=== PATIENT | female | born 1940 | race Caucasian/White ===

== ENCOUNTER 2018-05-17 09:36 | Emergency (ER) | payer MEDICARE ==
[~2018-05-17] VITALS: Ht 162.6 cm; Wt 5.9 kg
[2018-05-17 11:45] LABS: BASOPHILS # (AUTO) 0.1 X10'3 (0-0.2); BASOPHILS % (AUTO) 0.6 % (0-1); EOSINOPHILS % (AUTO) 0 % (0-6); HEMATOCRIT 42.6 % (35.0-45.0); HEMOGLOBIN 14.4 g/dl (12.0-16.0); LYMPHOCYTES # (AUTO) 1.3 X10'3 (1.1-4.8); LYMPHOCYTES % (AUTO) 8.8 % (21-51); MEAN CORPUSCULAR HEMOGLOBIN 30.8 PG (27.0-31.0); MEAN CORPUSCULAR HGB CONC 33.9 g/dL (33.0-36.5); MEAN CORPUSCULAR VOLUME 90.9 FL (78-98); MEAN PLATELET VOLUME 7.6 FL (7.4-10.4); MONOCYTES # (AUTO) 0.6 X10'3 (0-0.9); MONOCYTES % (AUTO) 4.5 % (2-12); NEUTROPHILS # (AUTO) 12.4 X10'3 (1.8-7.7); NEUTROPHILS % (AUTO) 86.1 % (42-75); PLATELET COUNT 267 X10'3 (140-440); RED BLOOD COUNT 4.69 X10'6 (4.20-5.60); RED CELL DISTRIBUTION WIDTH 14.1 % (11.5-14.5); WHITE BLOOD COUNT 14.4 X10'3 (4.5-11.0)
[2018-05-17 12:00] LABS: ALANINE AMINOTRANSFERASE 30 U/L (12-78); ALBUMIN 4.4 G/DL (3.4-5.0); ALBUMIN/GLOBULIN RATIO 1.2 (1.1-1.5); ALKALINE PHOSPHATASE 88 IU/L (46-116); ANION GAP 10 (8-16); ASPARTATE AMINO TRANSFERASE 22 U/L (10-37); BILIRUBIN,TOTAL 0.7 MG/DL (0.1-1.0); BLOOD UREA NITROGEN 17 MG/DL (7-18); BUN/CREATININE RATIO 16.5 (6.6-38.0); CALCIUM 9.8 MG/DL (8.5-10.1); CHLORIDE 104 MMOL/L (99-107); CREATININE 1.03 MG/DL (0.40-0.90); GLUCOSE 117 MG/DL (70-104); POTASSIUM 4.3 MMOL/L (3.5-5.1); SODIUM 141 MMOL/L (135-145); TOTAL CARBON DIOXIDE 26.6 MMOL/L (24-32); eGFR 52 ML/MIN
[2018-05-17 12:03] LABS: PROTHROMBIN TIME 9.9 SECONDS (9.0-12.0)
--- NOTE | 2018-05-17 12:35 | NUR ---
PT IN CT
[2018-05-17] MEDS ORDERED: metroNIDAZOLE 500mg tablet PO ONE (14:25)
[2018-05-17] MEDS ORDERED: ondansetron 4mg rapidly disintigrating tab PO ONE (14:25)
[2018-05-17] MEDS ORDERED: ciprofloxacin 250mg tablet PO ONE (14:25)
[2018-05-17] MEDS ORDERED: ONDA8TAB6 PO (15:15)
[2018-05-17] MEDS ORDERED: CIPR-230 PO (15:15)
[2018-05-17] MEDS ORDERED: METR-159 PO (15:15)
[2018-05-17 15:31] VITALS: BP 173/89
== END 2018-05-17 15:33 | disposition home or self-care (01) ==
LOC: ER 09:37
DX: K52.89 Other specified noninfective gastroenteritis and colitis (principal); K62.5 Hemorrhage of anus and rectum; I10 Essential (primary) hypertension; Z88.0 Allergy status to penicillin
CPT/HCPCS: 36415; 74176; 80053; 85025; 85610; 99284; J3490

== ENCOUNTER 2020-01-17 18:40 | Inpatient (IN) | payer MEDICARE ==
[~2020-01-17] VITALS: Ht 162.6 cm; Wt 58.1 kg
[~2020-01-17 18:40] MED LIST: ONDA8TAB6 PO
[2020-01-17] MEDS ORDERED: acetaminophen 325mg tablet PO STA (19:04)
[2020-01-17] MEDS ORDERED: dexamethasone sod phosphate 10mg/ml inj IV STA (19:04)
[2020-01-17] MEDS ORDERED: albuterol 2.5 MG/3 ML nebule NEB ONE (19:05)
[2020-01-17] MEDS ORDERED: enoxaparin 100mg/ml syringe SUBCUT ONE (19:05)
[2020-01-17] MEDS ORDERED: LISI-600 PO (19:08)
[2020-01-17] MEDS ORDERED: FAMO20TA10 PO (19:08)
[2020-01-17] MEDS ORDERED: REMDESIVIR 100MG inj. 200 MG in normal saline 100ml IV soln 100 ML IV ONE (19:10)
[2020-01-17] MEDS: ringers solution, lacted 1,000 ML IV SCH (19:28)
[2020-01-17 19:34] LABS: BASOPHILS # (AUTO) 0.1 X10'3 (0-0.2); BASOPHILS % (AUTO) 0.5 % (0-1); EOSINOPHILS % (AUTO) 0 % (0-6); HEMATOCRIT 40.4 % (35.0-45.0); HEMOGLOBIN 13.8 g/dl (12.0-16.0); LYMPHOCYTES # (AUTO) 0.6 X10'3 (1.1-4.8); LYMPHOCYTES % (AUTO) 4.7 % (21-51); MEAN CORPUSCULAR HEMOGLOBIN 30.3 PG (27.0-31.0); MEAN CORPUSCULAR HGB CONC 34.1 g/dL (33.0-36.5); MEAN CORPUSCULAR VOLUME 88.9 FL (78-98); MEAN PLATELET VOLUME 6.8 FL (7.4-10.4); MONOCYTES % (AUTO) 7.2 % (2-12); NEUTROPHILS # (AUTO) 11.6 X10'3 (1.8-7.7); NEUTROPHILS % (AUTO) 87.6 % (42-75); PLATELET COUNT 233 X10'3 (140-440); RED BLOOD COUNT 4.54 X10'6 (4.20-5.60); RED CELL DISTRIBUTION WIDTH 14.2 % (11.5-14.5); WHITE BLOOD COUNT 13.3 X10'3 (4.5-11.0)
[2020-01-17] MEDS ORDERED: CefTRIAXone 2gm/D5W 50ml BAG 50 ML IV ONE (19:45)
[2020-01-17] MEDS ORDERED: azithromycin/NS 500mg/250ml 250 ML IV ONE (19:45)
[2020-01-17 19:48] LABS: ALANINE AMINOTRANSFERASE 37 U/L (12-78); ALBUMIN 2.8 G/DL (3.4-5.0); ALBUMIN/GLOBULIN RATIO 0.5 (1.1-1.5); ALKALINE PHOSPHATASE 73 IU/L (46-116); ANION GAP 9 (8-16); ASPARTATE AMINO TRANSFERASE 33 U/L (10-37); BILIRUBIN,TOTAL 0.5 MG/DL (0.1-1.0); BLOOD UREA NITROGEN 18 MG/DL (7-18); BUN/CREATININE RATIO 17.5 (6.6-38.0); CALCIUM 8.7 MG/DL (8.5-10.1); CHLORIDE 100 MMOL/L (99-107); CREATININE 1.03 MG/DL (0.40-0.90); GLUCOSE 129 MG/DL (70-104); POTASSIUM 4.3 MMOL/L (3.5-5.1); SODIUM 134 MMOL/L (135-145); TOTAL CARBON DIOXIDE 24.8 MMOL/L (24-32); TOTAL PROTEIN 7.9 G/DL (6.4-8.2); eGFR 52 ML/MIN
[2020-01-17 19:59] LABS: C-REACTIVE PROTEIN 8.79 MG/DL (0.0-0.5); FERRITIN 730 NG/ML (8-252); LACTATE DEHYDROGENASE 358 U/L (81-234)
[2020-01-17 20:20] LABS: ABG BASE EXCESS -0.3 mmol/L (-2.0-2.0); ABG HCO3 21.4 mmol/L (22.0-26.0); ABG OXYGEN SATURATION 92.4 % (94-97); ABG PCO2 (T) 27.6 mmHg (32.0-45.0); ALLEN'S TEST POSITIVE; FCOHb 0.5 % (0.0-3.9); FLOW 6 L/min; FMetHb 0.3 % (0.0-1.5); FO2Hb 91.7 % (94-97); PATIENT TEMPERATURE 37.3; TOTAL HEMOGLOBIN 13.2 G/dl (12.0-16.0)
[2020-01-17] MEDS ORDERED: ALBUTEROL INHALER 1 PUFF/90 MCG INHALER IH ONE (20:25)
[2020-01-17] MEDS ORDERED: temazepam 15mg capsule PO PRN (21:00)
[2020-01-17] MEDS ORDERED: iohexol 350MG/ML 100ml bottle IV ONE (21:03)
[2020-01-17 21:24] LABS: D-DIMER > 35.20 MG/L FEU (0-0.50)
[2020-01-17] MEDS ORDERED: acetaminophen 650mg rectal suppository RC PRN (23:40)
[2020-01-17] MEDS ORDERED: magnesium Cl slow-release 64mg tablet PO PRN (23:40)
[2020-01-17] MEDS ORDERED: potassium CL 10mEq/100ml bag 100 ML IV PRN ×2 (23:40)
[2020-01-17] MEDS ORDERED: ondansetron/PF 4mg/2ml inj IV PRN (23:40)
[2020-01-17] MEDS ORDERED: acetaminophen 325mg tablet PO PRN ×2 (23:40)
[2020-01-17] MEDS ORDERED: potassium Cl 20 mEq SR tablet PO PRN ×2 (23:40)
[2020-01-17] MEDS ORDERED: ALBUTEROL INHALER 1 PUFF/90 MCG INHALER IH PRN (23:40)
[2020-01-17] MEDS ORDERED: metoclopramide 5 mg/ml inj IV PRN (23:40)
[2020-01-17] MEDS ORDERED: mag hydrox/Alum hydrox/simeth 30ml oral suspension PO PRN (23:40)
[2020-01-17] MEDS ORDERED: HYDROcodone/acetaminophen 10/325mg tab PO PRN (23:40)
[2020-01-17] MEDS ORDERED: magnesium 2GM in 50ml NS 50 ML IV PRN (23:40)
[2020-01-17] MEDS ORDERED: magnesium hydroxide 30ml (MOM) UD suspension PO PRN (23:40)
[2020-01-17] MEDS ORDERED: HYDROcodone/acetaminophen 5mg/325mg tablet PO PRN (23:40)
[2020-01-17] MEDS ORDERED: magnesium 4gm in 100ml NS 100 ML IV PRN (23:40)
[2020-01-18] MEDS: normal saline 1000ml 1,000 ML IV SCH ×2 (00:33→18:00)
[2020-01-18] MEDS: ringers solution, lacted 1,000 ML IV SCH ×4 (01:45→21:45)
[2020-01-18] MEDS ORDERED: CefTRIAXone/D5W-Rocephin 1gm 50 ML IV SCH (08:00)
[2020-01-18] MEDS: K and/or MAG REPLACEMENT MC SCH ×2 (08:00→20:00)
[2020-01-18] MEDS ORDERED: azithromycin 250mg tablet PO SCH (08:00)
[2020-01-18] MEDS: famotidine 20mg tablet PO SCH ×2 (08:42→20:36)
[2020-01-18] MEDS: dexamethasone 4mg tablet PO SCH (08:42)
[2020-01-18] MEDS: lisinopril 20mg tablet PO SCH (08:44)
[2020-01-18] MEDS: enoxaparin 50mg/0.5ml (from 3ml vial) syringe SUBCUT SCH ×2 (08:44→20:36)
[2020-01-18 08:52] LABS: BASOPHILS # (AUTO) 0.1 X10'3 (0-0.2); BASOPHILS % (AUTO) 0.5 % (0-1); EOSINOPHILS % (AUTO) 0 % (0-6); HEMATOCRIT 41.4 % (35.0-45.0); HEMOGLOBIN 14.2 g/dl (12.0-16.0); LYMPHOCYTES # (AUTO) 0.7 X10'3 (1.1-4.8); LYMPHOCYTES % (AUTO) 6.5 % (21-51); MEAN CORPUSCULAR HGB CONC 34.3 g/dL (33.0-36.5); MEAN CORPUSCULAR VOLUME 90.3 FL (78-98); MEAN PLATELET VOLUME 7.4 FL (7.4-10.4); MONOCYTES # (AUTO) 0.7 X10'3 (0-0.9); MONOCYTES % (AUTO) 6.4 % (2-12); NEUTROPHILS % (AUTO) 86.6 % (42-75); PLATELET COUNT 225 X10'3 (140-440); RED BLOOD COUNT 4.59 X10'6 (4.20-5.60); RED CELL DISTRIBUTION WIDTH 14.4 % (11.5-14.5); WHITE BLOOD COUNT 10.4 X10'3 (4.5-11.0)
--- NOTE | 2020-01-18 08:57 | NUR ---
pt medicated with scheduled meds,pt sitting up in bed eating her breakfast ,no distress noted,will cont to monitor.
[2020-01-18 09:06] LABS: PARTIAL THROMBOPLASTIN TIME 40 SECONDS (22-32)
[2020-01-18 09:17] LABS: D-DIMER > 35.20 MG/L FEU (0-0.50)
[2020-01-18 09:24] LABS: ALANINE AMINOTRANSFERASE 27 U/L (12-78); ALBUMIN 2.4 G/DL (3.4-5.0); ALBUMIN/GLOBULIN RATIO 0.5 (1.1-1.5); ALKALINE PHOSPHATASE 68 IU/L (46-116); ANION GAP 10 (8-16); ASPARTATE AMINO TRANSFERASE 30 U/L (10-37); BILIRUBIN,TOTAL 0.3 MG/DL (0.1-1.0); BLOOD UREA NITROGEN 19 MG/DL (7-18); BUN/CREATININE RATIO 22.4 (6.6-38.0); CALCIUM 8.6 MG/DL (8.5-10.1); CHLORIDE 103 MMOL/L (99-107); CREATININE 0.85 MG/DL (0.40-0.90); FERRITIN 744 NG/ML (8-252); GLUCOSE 140 MG/DL (70-104); LACTATE DEHYDROGENASE 350 U/L (81-234); MAGNESIUM 2.4 MG/DL (1.5-2.4); PHOSPHORUS 3.5 MG/DL (2.3-4.5); POTASSIUM 4.1 MMOL/L (3.5-5.1); SODIUM 137 MMOL/L (135-145); TOTAL CARBON DIOXIDE 23.6 MMOL/L (24-32); TOTAL PROTEIN 7.4 G/DL (6.4-8.2); eGFR 65 ML/MIN
--- NOTE | 2020-01-18 10:58 | NUR ---
PT SITTING IN BED ,DENIES ANY CHEIF COMPLAINT .WILL CONT TO MONITOR.
--- NOTE | 2020-01-18 13:09 | NUR ---
called to give report as per the tech ,pt nurse is busy with other pt and they will call us back.
--- NOTE | 2020-01-18 13:49 | NUR ---
calling back to give report have not recevied the call from the nurse.
--- NOTE | 2020-01-18 13:54 | NUR ---
Patient in room ED 12. I have received report from ED nurse, and had the opportunity to ask questions and assume patient care.
--- NOTE | 2020-01-18 14:47 | NUR ---
notified [facility] charge nurse that pt report has been called an hour ago but due to short staff unable to take pt upstairs.
--- NOTE | 2020-01-18 14:49 | NUR ---
emely hernandez is going to take pt ustairs on tele monitor.
[2020-01-18 16:03] VITALS: BP 147/70
[2020-01-18 18:00] VITALS: BP 156/59
--- NOTE | 2020-01-18 18:29 | NUR ---
Problems reprioritized. Patient report given, questions answered & plan of care reviewed with DONNELL Rodriguez. Pt resting quietly in bed, No SOB or discomfort noted. states feeling a lot better now.
[2020-01-18] MEDS: REMDESIVIR 100MG inj. 100 MG in normal saline 100ml IV soln 100 ML IV SCH (20:36)
[2020-01-18 22:00] VITALS: BP 161/78
[2020-01-19 02:42] VITALS: BP 157/70
[2020-01-19] MEDS: normal saline 1000ml 1,000 ML IV SCH ×2 (04:16→13:01)
[2020-01-19] MEDS: ringers solution, lacted 1,000 ML IV SCH (04:25)
[2020-01-19 06:01] LABS: BASOPHILS % (AUTO) 0.1 % (0-1); EOSINOPHILS % (AUTO) 0 % (0-6); HEMOGLOBIN 12.7 g/dl (12.0-16.0); LYMPHOCYTES # (AUTO) 0.7 X10'3 (1.1-4.8); LYMPHOCYTES % (AUTO) 4.7 % (21-51); MEAN CORPUSCULAR HEMOGLOBIN 30.8 PG (27.0-31.0); MEAN CORPUSCULAR HGB CONC 34.3 g/dL (33.0-36.5); MEAN CORPUSCULAR VOLUME 89.9 FL (78-98); MEAN PLATELET VOLUME 7.6 FL (7.4-10.4); MONOCYTES # (AUTO) 1.2 X10'3 (0-0.9); MONOCYTES % (AUTO) 7.6 % (2-12); NEUTROPHILS # (AUTO) 13.8 X10'3 (1.8-7.7); NEUTROPHILS % (AUTO) 87.6 % (42-75); PLATELET COUNT 269 X10'3 (140-440); RED BLOOD COUNT 4.11 X10'6 (4.20-5.60); RED CELL DISTRIBUTION WIDTH 14.3 % (11.5-14.5); WHITE BLOOD COUNT 15.8 X10'3 (4.5-11.0)
[2020-01-19 06:13] LABS: D-DIMER 19.68 MG/L FEU (0-0.50)
[2020-01-19 06:41] LABS: ALANINE AMINOTRANSFERASE 30 U/L (12-78); ALBUMIN 2.2 G/DL (3.4-5.0); ALBUMIN/GLOBULIN RATIO 0.5 (1.1-1.5); ALKALINE PHOSPHATASE 72 IU/L (46-116); ANION GAP 11 (8-16); ASPARTATE AMINO TRANSFERASE 32 U/L (10-37); BILIRUBIN,TOTAL 0.2 MG/DL (0.1-1.0); BLOOD UREA NITROGEN 23 MG/DL (7-18); BUN/CREATININE RATIO 25.3 (6.6-38.0); CALCIUM 8.2 MG/DL (8.5-10.1); CHLORIDE 106 MMOL/L (99-107); CREATININE 0.91 MG/DL (0.40-0.90); FERRITIN 718 NG/ML (8-252); GLUCOSE 128 MG/DL (70-104); LACTATE DEHYDROGENASE 393 U/L (81-234); MAGNESIUM 2.3 MG/DL (1.5-2.4); PHOSPHORUS 3.1 MG/DL (2.3-4.5); POTASSIUM 3.8 MMOL/L (3.5-5.1); SODIUM 141 MMOL/L (135-145); TOTAL PROTEIN 6.6 G/DL (6.4-8.2); eGFR 60 ML/MIN
[2020-01-19] MEDS: K and/or MAG REPLACEMENT MC SCH ×2 (08:00→20:00)
[2020-01-19] MEDS: dexamethasone 4mg tablet PO SCH (08:41)
[2020-01-19] MEDS: lisinopril 20mg tablet PO SCH (08:45)
[2020-01-19] MEDS: famotidine 20mg tablet PO SCH ×2 (08:45→21:16)
[2020-01-19 08:46] VITALS: BP 160/72
[2020-01-19] MEDS: enoxaparin 50mg/0.5ml (from 3ml vial) syringe SUBCUT SCH ×2 (08:46→21:17)
[2020-01-19 10:39] VITALS: BP 141/60
--- NOTE | 2020-01-19 12:36 | NUR ---
PAGE SENT TO RESPIRATORY ... [address] : JUANY ORDERED. THANKS.
[2020-01-19 13:01] LABS: ABG HCO3 18.9 mmol/L (22.0-26.0); ABG OXYGEN SATURATION 93.7 % (94-97); ABG PCO2 (T) 25.5 mmHg (32.0-45.0); ABG PO2 (T) 69.1 mmHg (75.0-100.0); ALLEN'S TEST POSITIVE; FCOHb 0.3 % (0.0-3.9); FLOW 4 L/min; FMetHb 0.3 % (0.0-1.5); FO2Hb 93.1 % (94-97); TOTAL HEMOGLOBIN 12.9 G/dl (12.0-16.0)
[2020-01-19 15:58] VITALS: BP 147/72
--- NOTE | 2020-01-19 16:44 | NUR ---
Malnutrition consult: Pt admit with COVID positive and on droplet precautions. RD general internist and physician leader attempted to call pt 3 times to obtain information about appetite and wt loss however pt did not answer. Pt reports 2-13 lbs wt loss per malnutrition risk screen w/ RN. Current wt 110 lbs, however method of obtained wt unclear. RD requested new scaled wt for pt. Pt stated wt in July 2018 was 130 lbs, 15% loss in 1 year is not severe. PO intake average 50-75% on regular diet, meeting estimated nutrient needs. Per physical assessment, no edema and normal muscle strength. Patient lacks a minimum of two criteria for malnutrition, however will monitor closely. Addendum: 01/19/20 at [address] Amended: Links added. Addendum: 01/19/20 at [address] I have reviewed and agree with note by Nurse Coordinator. Nilda Grimes RD
--- NOTE | 2020-01-19 18:17 | NUR ---
Problems reprioritized. Patient report given, questions answered & plan of care reviewed with DONNELL gibbs.
[2020-01-19] MEDS: REMDESIVIR 100MG inj. 100 MG in normal saline 100ml IV soln 100 ML IV SCH (21:16)
[2020-01-19 21:49] VITALS: BP 164/44
[2020-01-20 01:00] VITALS: BP 140/62
[2020-01-20] MEDS: normal saline 1000ml 1,000 ML IV SCH ×2 (04:28→18:10)
--- NOTE | 2020-01-20 06:17 | NUR ---
Patient in room PCU 3011. I have received report from DONNELL Callejas and had the opportunity to ask questions and assume patient care.
[2020-01-20 06:40] LABS: BASOPHILS % (AUTO) 0.3 % (0-1); EOSINOPHILS % (AUTO) 0 % (0-6); HEMATOCRIT 36.5 % (35.0-45.0); HEMOGLOBIN 12.5 g/dl (12.0-16.0); LYMPHOCYTES # (AUTO) 0.9 X10'3 (1.1-4.8); LYMPHOCYTES % (AUTO) 6.5 % (21-51); MEAN CORPUSCULAR HEMOGLOBIN 30.9 PG (27.0-31.0); MEAN CORPUSCULAR HGB CONC 34.3 g/dL (33.0-36.5); MEAN CORPUSCULAR VOLUME 90.1 FL (78-98); MEAN PLATELET VOLUME 7.3 FL (7.4-10.4); MONOCYTES # (AUTO) 0.9 X10'3 (0-0.9); MONOCYTES % (AUTO) 6.8 % (2-12); NEUTROPHILS # (AUTO) 11.8 X10'3 (1.8-7.7); NEUTROPHILS % (AUTO) 86.4 % (42-75); PLATELET COUNT 290 X10'3 (140-440); RED BLOOD COUNT 4.05 X10'6 (4.20-5.60); RED CELL DISTRIBUTION WIDTH 14.3 % (11.5-14.5); WHITE BLOOD COUNT 13.7 X10'3 (4.5-11.0)
[2020-01-20 06:57] LABS: D-DIMER 13.36 MG/L FEU (0-0.50)
[2020-01-20 07:16] LABS: ALANINE AMINOTRANSFERASE 32 U/L (12-78); ALBUMIN 2.5 G/DL (3.4-5.0); ALBUMIN/GLOBULIN RATIO 0.6 (1.1-1.5); ALKALINE PHOSPHATASE 64 IU/L (46-116); ANION GAP 11 (8-16); ASPARTATE AMINO TRANSFERASE 27 U/L (10-37); BILIRUBIN,TOTAL 0.3 MG/DL (0.1-1.0); BLOOD UREA NITROGEN 20 MG/DL (7-18); BUN/CREATININE RATIO 22.2 (6.6-38.0); C-REACTIVE PROTEIN 3.71 MG/DL (0.0-0.5); CALCIUM 8.1 MG/DL (8.5-10.1); CHLORIDE 112 MMOL/L (99-107); FERRITIN 604 NG/ML (8-252); GLUCOSE 108 MG/DL (70-104); LACTATE DEHYDROGENASE 370 U/L (81-234); MAGNESIUM 2.4 MG/DL (1.5-2.4); PHOSPHORUS 2.8 MG/DL (2.3-4.5); POTASSIUM 3.4 MMOL/L (3.5-5.1); SODIUM 145 MMOL/L (135-145); TOTAL PROTEIN 6.7 G/DL (6.4-8.2); eGFR 60 ML/MIN
[2020-01-20] MEDS: K and/or MAG REPLACEMENT MC SCH ×2 (07:19→20:00)
[2020-01-20 07:46] VITALS: BP 164/65
[2020-01-20] MEDS: famotidine 20mg tablet PO SCH ×2 (07:48→19:37)
[2020-01-20] MEDS: lisinopril 20mg tablet PO SCH (07:48)
[2020-01-20] MEDS: enoxaparin 50mg/0.5ml (from 3ml vial) syringe SUBCUT SCH ×2 (07:49→19:37)
[2020-01-20] MEDS: dexamethasone 4mg tablet PO SCH (07:59)
[2020-01-20 12:31] VITALS: BP 154/71
[2020-01-20 15:00] VITALS: BP 177/71
--- NOTE | 2020-01-20 15:33 | NUR ---
PAGER ID: [phone] MESSAGE: [phone] Lilia Dave: Her BP is 177/71, do we want to give her anything for it? Pulse fine in 70's. DONNELL Jones Ext [phone]
[2020-01-20] MEDS: HYDROchlorothiazide 12.5mg capsule PO SCH (15:40)
[2020-01-20 18:00] VITALS: BP 165/77
--- NOTE | 2020-01-20 18:16 | NUR ---
Problems reprioritized. Patient report given, questions answered & plan of care reviewed with DONNELL Rodriguez.
--- NOTE | 2020-01-20 18:17 | NUR ---
Patient in room PCU 3011. I have received report from Robert JACOBO and had the opportunity to ask questions and assume patient care.
[2020-01-20] MEDS: REMDESIVIR 100MG inj. 100 MG in normal saline 100ml IV soln 100 ML IV SCH (20:02)
[2020-01-20 22:00] VITALS: BP 167/79
[2020-01-21] MEDS ORDERED: magnesium Cl slow-release 64mg tablet PO PRN (00:10)
[2020-01-21] MEDS ORDERED: potassium CL 10mEq/100ml bag 100 ML IV PRN (00:10)
[2020-01-21] MEDS ORDERED: magnesium 4gm in 100ml NS 100 ML IV PRN (00:10)
[2020-01-21] MEDS ORDERED: potassium Cl 20 mEq SR tablet PO PRN ×2 (00:10)
[2020-01-21 02:00] VITALS: BP 166/75
[2020-01-21 04:33] LABS: BASOPHILS % (AUTO) 0 % (0-1); EOSINOPHILS # (AUTO) 0.1 X10'3 (0-0.9); EOSINOPHILS % (AUTO) 0.5 % (0-6); HEMATOCRIT 37.9 % (35.0-45.0); HEMOGLOBIN 12.6 g/dl (12.0-16.0); LYMPHOCYTES # (AUTO) 1.1 X10'3 (1.1-4.8); LYMPHOCYTES % (AUTO) 7.3 % (21-51); MEAN CORPUSCULAR HEMOGLOBIN 29.9 PG (27.0-31.0); MEAN CORPUSCULAR HGB CONC 33.3 g/dL (33.0-36.5); MEAN CORPUSCULAR VOLUME 89.6 FL (78-98); MONOCYTES # (AUTO) 0.7 X10'3 (0-0.9); MONOCYTES % (AUTO) 4.9 % (2-12); NEUTROPHILS % (AUTO) 87.3 % (42-75); PLATELET COUNT 290 X10'3 (140-440); RED BLOOD COUNT 4.23 X10'6 (4.20-5.60); RED CELL DISTRIBUTION WIDTH 14.2 % (11.5-14.5); WHITE BLOOD COUNT 14.9 X10'3 (4.5-11.0)
[2020-01-21 04:46] LABS: D-DIMER 10.54 MG/L FEU (0-0.50)
[2020-01-21 04:52] LABS: ALANINE AMINOTRANSFERASE 78 U/L (12-78); ALBUMIN 2.6 G/DL (3.4-5.0); ALBUMIN/GLOBULIN RATIO 0.6 (1.1-1.5); ALKALINE PHOSPHATASE 70 IU/L (46-116); ANION GAP 10 (8-16); ASPARTATE AMINO TRANSFERASE 91 U/L (10-37); BILIRUBIN,TOTAL 0.5 MG/DL (0.1-1.0); BLOOD UREA NITROGEN 16 MG/DL (7-18); BUN/CREATININE RATIO 18.2 (6.6-38.0); C-REACTIVE PROTEIN 2.89 MG/DL (0.0-0.5); CALCIUM 7.9 MG/DL (8.5-10.1); CHLORIDE 107 MMOL/L (99-107); CREATININE 0.88 MG/DL (0.40-0.90); FERRITIN 629 NG/ML (8-252); GLUCOSE 103 MG/DL (70-104); LACTATE DEHYDROGENASE 462 U/L (81-234); MAGNESIUM 2.1 MG/DL (1.5-2.4); PHOSPHORUS 2.6 MG/DL (2.3-4.5); POTASSIUM 3.8 MMOL/L (3.5-5.1); SODIUM 140 MMOL/L (135-145); TOTAL CARBON DIOXIDE 23.3 MMOL/L (24-32); TOTAL PROTEIN 6.7 G/DL (6.4-8.2); eGFR 62 ML/MIN
[2020-01-21 06:00] VITALS: BP 168/77
[2020-01-21] MEDS: K and/or MAG REPLACEMENT MC SCH ×4 (06:41→20:00)
--- NOTE | 2020-01-21 06:47 | NUR ---
Problems reprioritized. Patient report given, questions answered & plan of care reviewed with Daria JACOBO.
[2020-01-21] MEDS: dexamethasone 4mg tablet PO SCH (07:40)
[2020-01-21] MEDS: lisinopril 20mg tablet PO SCH (07:41)
[2020-01-21] MEDS: enoxaparin 50mg/0.5ml (from 3ml vial) syringe SUBCUT SCH ×2 (07:42→20:04)
[2020-01-21] MEDS: famotidine 20mg tablet PO SCH ×2 (07:43→20:03)
[2020-01-21 08:42] LABS: TOTAL CELLS COUNTED 100
[2020-01-21 08:43] LABS: BURR CELLS FEW; PLATELET ESTIMATE NORMAL; SCHISTOCYTES FEW
[2020-01-21] MEDS ORDERED: ALBUTEROL INHALER 1 PUFF/90 MCG INHALER IH PRN (10:05)
[2020-01-21] MEDS: HYDROchlorothiazide 12.5mg capsule PO SCH (10:11)
[2020-01-21 11:00] VITALS: BP 155/70
[2020-01-21] MEDS: ALPRAZolam 0.5mg tablet PO PRN ×2 (11:47→20:03)
[2020-01-21 13:01] LABS: ABG HCO3 18.1 mmol/L (22.0-26.0); ABG PO2 (T) 64.2 mmHg (75.0-100.0); ALLEN'S TEST POSITIVE; FLOW 2 L/min; FMetHb 0.3 % (0.0-1.5); FO2Hb 92.7 % (94-97); TOTAL HEMOGLOBIN 12.6 G/dl (12.0-16.0)
--- NOTE | 2020-01-21 13:03 | NUR ---
PAGER ID: [phone] MESSAGE: NIMESH [email or web address], [facility] THE ABG IS RESULTED FOR 3011. THANK YOU
[2020-01-21 18:00] VITALS: BP 173/80
--- NOTE | 2020-01-21 18:14 | NUR ---
Patient in room PCU 3011. I have received report from Daria JACOBO and had the opportunity to ask questions and assume patient care.
[2020-01-21] MEDS: REMDESIVIR 100MG inj. 100 MG in normal saline 100ml IV soln 100 ML IV SCH (20:02)
[2020-01-21] MEDS ORDERED: amLODIPine 2.5mg tablet PO ONE (21:05)
[2020-01-21 22:00] VITALS: BP 160/72
[2020-01-21] MEDS: normal saline 1000ml 1,000 ML IV SCH (22:16)
[2020-01-22 01:24] LABS: BASOPHILS % (AUTO) 0 % (0-1); EOSINOPHILS % (AUTO) 1.1 % (0-6); HEMOGLOBIN 11.5 g/dl (12.0-16.0); NEUTROPHILS # (AUTO) 12.2 X10'3 (1.8-7.7)
[2020-01-22 01:26] LABS: EOSINOPHILS # (AUTO) 0.2 X10'3 (0-0.9); HEMATOCRIT 33.5 % (35.0-45.0); LYMPHOCYTES # (AUTO) 0.9 X10'3 (1.1-4.8); LYMPHOCYTES % (AUTO) 6.2 % (21-51); MEAN CORPUSCULAR HEMOGLOBIN 30.7 PG (27.0-31.0); MEAN CORPUSCULAR HGB CONC 34.4 g/dL (33.0-36.5); MEAN CORPUSCULAR VOLUME 89.3 FL (78-98); MEAN PLATELET VOLUME 7.3 FL (7.4-10.4); MONOCYTES # (AUTO) 0.8 X10'3 (0-0.9); MONOCYTES % (AUTO) 5.8 % (2-12); NEUTROPHILS % (AUTO) 86.9 % (42-75); PLATELET COUNT 260 X10'3 (140-440); RED BLOOD COUNT 3.74 X10'6 (4.20-5.60); RED CELL DISTRIBUTION WIDTH 14.3 % (11.5-14.5)
[2020-01-22 01:38] LABS: D-DIMER 7.54 MG/L FEU (0-0.50)
[2020-01-22 01:46] LABS: ALANINE AMINOTRANSFERASE 83 U/L (12-78); ALBUMIN 2.3 G/DL (3.4-5.0); ALBUMIN/GLOBULIN RATIO 0.6 (1.1-1.5); ALKALINE PHOSPHATASE 73 IU/L (46-116); ANION GAP 9 (8-16); ASPARTATE AMINO TRANSFERASE 58 U/L (10-37); BILIRUBIN,TOTAL 0.3 MG/DL (0.1-1.0); BLOOD UREA NITROGEN 18 MG/DL (7-18); C-REACTIVE PROTEIN 3.19 MG/DL (0.0-0.5); CALCIUM 7.9 MG/DL (8.5-10.1); CHLORIDE 106 MMOL/L (99-107); FERRITIN 519 NG/ML (8-252); GLUCOSE 124 MG/DL (70-104); LACTATE DEHYDROGENASE 330 U/L (81-234); MAGNESIUM 2.2 MG/DL (1.5-2.4); PHOSPHORUS 3.6 MG/DL (2.3-4.5); POTASSIUM 3.8 MMOL/L (3.5-5.1); SODIUM 138 MMOL/L (135-145); TOTAL CARBON DIOXIDE 22.8 MMOL/L (24-32); TOTAL PROTEIN 6.2 G/DL (6.4-8.2); eGFR 60 ML/MIN
[2020-01-22 02:00] VITALS: BP 169/85
[2020-01-22 06:00] VITALS: BP 161/63
--- NOTE | 2020-01-22 06:31 | NUR ---
Problems reprioritized. Patient report given, questions answered & plan of care reviewed with Charan RN.
--- NOTE | 2020-01-22 06:53 | NUR ---
Patient in room PCU 3011. I have received report from DONNELL VELASQUEZ and had the opportunity to ask questions and assume patient care.
[2020-01-22] MEDS: K and/or MAG REPLACEMENT MC SCH ×2 (08:00→20:00)
[2020-01-22] MEDS: dexamethasone 4mg tablet PO SCH (08:17)
[2020-01-22] MEDS: HYDROchlorothiazide 12.5mg capsule PO SCH (08:18)
[2020-01-22] MEDS: famotidine 20mg tablet PO SCH ×2 (08:19→19:06)
[2020-01-22] MEDS: lisinopril 20mg tablet PO SCH (08:20)
[2020-01-22] MEDS: enoxaparin 50mg/0.5ml (from 3ml vial) syringe SUBCUT SCH ×2 (08:21→19:07)
[2020-01-22 11:00] VITALS: BP 121/58
--- NOTE | 2020-01-22 11:00 | NUR ---
O2 Sat at rest on room air:__85_% If below 89%: Recovery O2 Sat at rest on __4_LPM:__91%_%:___% via NC (mask/nasal cannula, etc..) No further documentation is necessary. If O2 Sat did not drop below 89% on room air,ambulate patient on room air. O2 Sat while ambulating on room air:___% Recovery O2 Sat while ambulating on ___LPM:___% No further documentation is necessary. If patient does not drop below 89% while ambulating, he/she does not qualify for home O2.
--- NOTE | 2020-01-22 13:44 | NUR ---
Initial: Pt admitted with COVID positive and on droplet precautions. PO intake average 100% on regular diet, pt has increased protein needs d/t COVID, however is meeting estimated nutrient needs. Recommend double eggs at breakfast and double meat q BIDLD for satiety, discussed w/ dietary. Last BM 01/19, has had two small BMs since admit. Paged MD the following: Pt has only had two small bowel movements since admission, appears to be constipated. May benefit from routine bowel care for bowel regularity. Pt scaled wt 128 lbs, per documented wt hx no wt loss. No nutrition concerns at this time, will continue to monitor. Recs: 1) Continue regular diet, double eggs at breakfast and double meat BIDLD 2) Bowel care per rx if MD agreeable 3) Scaled wt per rx Addendum: 01/22/20 at [address] Amended: Links added. Addendum: 01/22/20 at [address] RD agree with college intern note
[2020-01-22 15:00] VITALS: BP 128/60
[2020-01-22 18:00] VITALS: BP 167/76
--- NOTE | 2020-01-22 18:15 | NUR ---
Patient in room PCU 3011. I have received report from Charan JACOBO and had the opportunity to ask questions and assume patient care.
--- NOTE | 2020-01-22 18:30 | NUR ---
Problems reprioritized. Patient report given, questions answered & plan of care reviewed with DONNELL VELASQUEZ.
[2020-01-22 22:00] VITALS: BP 143/73
[2020-01-23 02:00] VITALS: BP 152/89
[2020-01-23 06:00] VITALS: BP 155/73
--- NOTE | 2020-01-23 06:22 | NUR ---
Patient in room PCU 3011. I have received report from DONNELL VELASQUEZ and had the opportunity to ask questions and assume patient care.
--- NOTE | 2020-01-23 06:24 | NUR ---
Problems reprioritized. Patient report given, questions answered & plan of care reviewed with Charan RN.
[2020-01-23 06:38] LABS: BASOPHILS # (AUTO) 0.1 X10'3 (0-0.2); BASOPHILS % (AUTO) 0.6 % (0-1); EOSINOPHILS % (AUTO) 0.1 % (0-6); HEMOGLOBIN 11.8 g/dl (12.0-16.0); LYMPHOCYTES # (AUTO) 1.4 X10'3 (1.1-4.8); LYMPHOCYTES % (AUTO) 9.4 % (21-51); MEAN CORPUSCULAR HEMOGLOBIN 30.9 PG (27.0-31.0); MEAN CORPUSCULAR HGB CONC 34.6 g/dL (33.0-36.5); MEAN CORPUSCULAR VOLUME 89.3 FL (78-98); MEAN PLATELET VOLUME 7.5 FL (7.4-10.4); MONOCYTES # (AUTO) 0.8 X10'3 (0-0.9); MONOCYTES % (AUTO) 5.1 % (2-12); NEUTROPHILS # (AUTO) 12.8 X10'3 (1.8-7.7); NEUTROPHILS % (AUTO) 84.8 % (42-75); PLATELET COUNT 249 X10'3 (140-440); RED BLOOD COUNT 3.81 X10'6 (4.20-5.60); RED CELL DISTRIBUTION WIDTH 14.4 % (11.5-14.5); WHITE BLOOD COUNT 15.1 X10'3 (4.5-11.0)
[2020-01-23 06:52] LABS: D-DIMER 5.14 MG/L FEU (0-0.50)
[2020-01-23 07:08] LABS: ALANINE AMINOTRANSFERASE 63 U/L (12-78); ALBUMIN 2.4 G/DL (3.4-5.0); ALBUMIN/GLOBULIN RATIO 0.6 (1.1-1.5); ALKALINE PHOSPHATASE 67 IU/L (46-116); ANION GAP 9 (8-16); ASPARTATE AMINO TRANSFERASE 27 U/L (10-37); BILIRUBIN,TOTAL 0.4 MG/DL (0.1-1.0); BLOOD UREA NITROGEN 20 MG/DL (7-18); BUN/CREATININE RATIO 21.3 (6.6-38.0); C-REACTIVE PROTEIN 3.42 MG/DL (0.0-0.5); CALCIUM 8.6 MG/DL (8.5-10.1); CHLORIDE 109 MMOL/L (99-107); CREATININE 0.94 MG/DL (0.40-0.90); FERRITIN 438 NG/ML (8-252); GLUCOSE 118 MG/DL (70-104); LACTATE DEHYDROGENASE 298 U/L (81-234); MAGNESIUM 2.3 MG/DL (1.5-2.4); PHOSPHORUS 4.5 MG/DL (2.3-4.5); SODIUM 142 MMOL/L (135-145); TOTAL CARBON DIOXIDE 24.1 MMOL/L (24-32); TOTAL PROTEIN 6.2 G/DL (6.4-8.2); eGFR 57 ML/MIN
[2020-01-23] MEDS: famotidine 20mg tablet PO SCH (07:38)
[2020-01-23] MEDS: HYDROchlorothiazide 12.5mg capsule PO SCH (07:38)
[2020-01-23] MEDS: dexamethasone 4mg tablet PO SCH (07:38)
[2020-01-23] MEDS: lisinopril 20mg tablet PO SCH (07:39)
[2020-01-23] MEDS: enoxaparin 50mg/0.5ml (from 3ml vial) syringe SUBCUT SCH (07:40)
[2020-01-23] MEDS: K and/or MAG REPLACEMENT MC SCH (08:00)
[2020-01-23] MEDS ORDERED: DEC4T PO (10:47)
[2020-01-23] MEDS ORDERED: APIX5TAB3 PO (10:47)
[2020-01-23 11:00] VITALS: BP 132/66
--- NOTE | 2020-01-23 14:10 | NUR ---
PAGER ID: [phone] MESSAGE: DR. GRANADOS, [id number], WERE YOU PLANNING TO SEE HER BEFORE DISCHARGE? RANDOLPH, [phone]. TY
--- NOTE | 2020-01-23 14:45 | NUR ---
PAGED CASE MANAGEMENT. 3011A, CAN I HAVE AN ETA FOR HOME 02? HER RIDE IS ONE HOUR AWAY, TRYING TO COORIDNATE TRANSPORT HOME. RANDOLPH [phone] TY.
[2020-01-23 15:00] VITALS: BP 140/72
--- NOTE | 2020-01-23 16:44 | NUR ---
SIGNED DISCHARGE PAPERS, AWAITING 02 DELIVERY. DISCUSSED BRINGING SIGNATURE PAGES WITH GRAYSON LEONARDO RNOUT OF ROOM TO MAKE COPIES. INSTRUCTED TO NOT MAKE COPIES, RE:COVID-19 .
== END 2020-01-23 17:30 | disposition home or self-care (01) | DRG 177 ==
LOC: ER 18:40 → ED HOLD 23:40 → PCU 3S 01-18 15:02
PROVIDERS: ADMIT Family Medicine; ATTEND Internal Medicine
PROC: XW033E5 Introduction of Remdesivir Anti-infective into Peripheral Vein, Percutaneous Approach, New Technology Group 5 (ICD-10-PCS; principal; 2020-01-17)
PROC: B32T1ZZ Computerized Tomography (CT Scan) of Left Pulmonary Artery using Low Osmolar Contrast (ICD-10-PCS; 2020-01-17)
PROC: B3201ZZ Computerized Tomography (CT Scan) of Thoracic Aorta using Low Osmolar Contrast (ICD-10-PCS; 2020-01-17)
PROC: B32S1ZZ Computerized Tomography (CT Scan) of Right Pulmonary Artery using Low Osmolar Contrast (ICD-10-PCS; 2020-01-17)
DX: U07.1 COVID-19 (principal); J96.01 Acute respiratory failure with hypoxia; J12.89 Other viral pneumonia; I26.99 Other pulmonary embolism without acute cor pulmonale; J15.9 Unspecified bacterial pneumonia; E87.1 Hypo-osmolality and hyponatremia; K21.9 Gastro-esophageal reflux disease without esophagitis; I10 Essential (primary) hypertension; D72.810 Lymphocytopenia; Z87.891 Personal history of nicotine dependence; Z88.0 Allergy status to penicillin; Z79.899 Other long term (current) drug therapy
CPT/HCPCS: 36415; 36600; 71045; 71275; 80053; 82728; 82803; 82948; 83605; 83615; 83735; 84100; 84145; 84443; 85007; 85018; 85025; 85379; 85610; 85730; 86140; 87040; 87081; 93005; 94640; 94760; 97110; 97161; 99285; G0378; J0456; J0696; J1100; J1650; J7030; J7120; Q9967